=== PATIENT | female | born 1985 | race Two or more races ===

== ENCOUNTER 2016-09-17 21:02 | Emergency (ER) | payer MEDICAID ==
[2016-09-17 21:13] VITALS: BP 115/83; PULSE 87; RESP 16; TEMP 99.3; O2SAT 96
--- NOTE | 2016-09-17 21:46 | EDPHY ---
H & P HPI/ROS: CHIEF COMPLAINT: Cough HISTORY OF PRESENT ILLNESS: Patient is a 31-year-old female who presents emergency department with 3 days of cough. She is also here with her son who has similar symptoms. Patient has a nonproductive cough. Her symptoms are moderate. She has had an intermittent fever to 99. She denies chest pain or shortness of breath. No runny nose or sinus pain. No headache or neck pain. No leg pain. REVIEW OF SYSTEMS: My complete review of systems is negative except as mentioned in the HPI. Past Medical/Surgical History: Denies Social History: The patient does not smoke. Smoking Status: Never smoked Physical Exam: Vitals noted GENERAL: Well-appearing, in no acute distress, alert. HEENT: Eyes normal to inspection, normal pharynx, no signs of dehydration. NECK: No thyromegaly, no lymphadenopathy, supple. RESPIRATORY: Clear to auscultation bilaterally, no rales, rhonchi or wheezing. CVS: Regular rate and rhythm, no rubs, murmurs, or gallops. ABDOMEN: Soft, nontender, nondistended, no organomegaly. BACK: Normal to inspection, no CVA tenderness. SKIN: Normal color, no rash, warm, dry. No pallor. EXTREMITIES: No pedal edema, no joint swelling. NEURO/PSYCH: Alert and oriented x3, normal mood and affect. No focal deficits cit. Constitutional: Initial Vital Signs Temperature (C) 37.4 C 09/17/16 21:11 Heart Rate 87 09/17/16 21:11 Respiratory Rate 16 09/17/16 21:11 Blood Pressure 115/83 H 09/17/16 21:11 O2 Sat (%) 96 09/17/16 21:11 O2 Delivery Mode Room Air Allergies/Adverse Reactions: No Known Allergies Allergy (Unverified 09/25/14 09:43) Home Medications: Medication Instructions Recorded NK [No Known Home Meds] 09/17/16 Medical Decision Making ED Course/Re-evaluation: In the emergency department I discussed possible etiologies with the patient. I answered all her questions. This time I do not feel the patient needs x-ray imaging. I do not feel this is pneumonia with her physical exam findings. She was given warnings prior to leaving. She will return with worsening symptoms. Differential Diagnosis: My differential includes but is not limited to pneumonia, bronchitis, bacteremia , sepsis, dehydration, sinusitis, viral illness Departure - Departure Disposition: Home, Routine, Self-Care Clinical Impression: Acute bronchitis Qualifiers: Bronchitis organism: unspecified organism Qualified Code(s): J20.9 - Acute bronchitis, unspecified Condition: Good Instructions: Acute Bronchitis (ED) Additional Instructions: Return with increasing shortness of breath, cough, persistent fever or any other concerns. Referrals: Dajuan Moody MD [Primary Care Provider] - 09/22/16
== END 2016-09-17 21:51 | disposition home or self-care (01) ==
DX: J20.9 Acute bronchitis, unspecified (principal)

== ENCOUNTER 2018-08-08 17:00 | Emergency (ER) | payer MEDICAID, OTHER ==
[2018-08-08 17:07] VITALS: BP 125/77
--- NOTE | 2018-08-08 17:33 | EDPHY ---
H & P Time Seen by Provider: 08/08/18 17:17 HPI/ROS: Chief complaint: Cold symptoms History of present illness: This is a 33-year-old female who presents to the emergency department for cold symptoms. She has been sick for the last week. She reports tactile fevers and chills, runny nose, ear pain, sore throat and persistent, nonproductive cough. She has use [id number] cold medications with minimal relief. She denies other associated signs or symptoms including no shortness of breath, no headache or neck pain, no rash. Smoking Status: Never smoked Physical Exam: General Appearance: Alert and no distress. Eyes: Pupils equal and round no injection. ENT: Tympanic membranes, external auditory canals, external ears and surrounding soft tissue including over the mastoids are unremarkable. Nasopharynx is injected. There is clear rhinorrhea. Oropharynx is injected. There is no edema. There is no exudate. There is no asymmetry. The uvula is midline. No elevation of the tongue. There is no hoarseness, no drooling, no trismus, no stridor. Respiratory: Chest is non tender, lungs are clear to auscultation. Cardiac: regular rate and rhythm Musculoskeletal: Neck is supple and non tender. Extremities have full range of motion and are non tender. Skin: No rashes or lesions. Neurological: No meningismus. Constitutional: Initial Vital Signs Temperature (C) 37.4 C 08/08/18 17:04 Heart Rate 94 08/08/18 17:04 Respiratory Rate 18 08/08/18 17:04 Blood Pressure 125/77 H 08/08/18 17:04 O2 Sat (%) 97 08/08/18 17:04 O2 Delivery Mode Room Air Allergies/Adverse Reactions: No Known Allergies Allergy (Unverified 09/25/14 09:43) Home Medications: Medication Instructions Recorded Codeine Phosphate/Guaifenesin 5 - 10 ml PO Q4-6PRN PRN #120 ml 08/08/18 [Codeine-Guaifen 10-100 mg/5 ml] MDM/Departure - MDM ED Course/Re-evaluation: Patient seen under the supervision of my secondary supervising physician Dr. Loc Nuñez. Patient presents for cold symptoms. She is nontoxic. Vital signs are stable. I believe this is most consistent with a viral syndrome. Antibiotics not warranted. Symptomatic treatment is discussed. She is to follow up with primary care doctor for recheck. Return precautions are given. Patient voiced understanding and agreement with plan. Differential Diagnosis: Included but not limited to strep pharyngitis, pharyngitis, URI, bronchitis, pneumonia, influenza - Depart Disposition: Home, Routine, Self-Care Clinical Impression: Viral syndrome Condition: Good Instructions: Viral Syndrome (ED) Additional Instructions: Follow-up with her primary care doctor tomorrow or early next week for recheck Drink plenty of fluids to stay hydrated and get plenty of rest Use ibuprofen 600 mg 3 times a day for the next 2-3 days for fever and pain control You can also use the cough syrup for cough control, it can be sedating If symptoms worsen or new symptoms develop return to the emergency room for recheck Prescriptions: Codeine Phosphate/Guaifenesin [Codeine-Guaifen 10-100 mg/5 ml] 5 - 10 ml PO Q4- 6PRN PRN #120 ml PRN Reason: Cough, Moderate Referrals: Dajuan Moody MD [Primary Care Provider] - As per Instructions
== END 2018-08-08 17:57 | disposition home or self-care (01) ==
DX: B34.9 Viral infection, unspecified (principal)